=== PATIENT | male | born 1960 | race Caucasian/White ===

== ENCOUNTER 2018-12-04 05:25 | Day surgery (SDC) | payer OTHER ==
[2018-12-03 09:32] LABS: HEMATOCRIT 47.3 % (42.0-54.0); HEMOGLOBIN 16.5 g/dL (13.5-17.5); MCHC 34.9 g/dL (31.0-37.0); MCV 97.3 fL (80.0-100.0); MEAN PLATELET VOLUME 10.2 fL (7.4-10.4); RBC 4.86 10x6/uL (4.20-6.10); RDW 13.5 % (11.5-14.5); WBC 7.5 10x3/uL (4.8-10.8)
[~2018-12-04] VITALS: Ht 188 cm; Wt 93.2 kg
[2018-12-04] VITALS (19 sets, daily range): BP systolic 106–136; BP diastolic 60–83; Ht 188 cm; Wt 93.2 kg
[~2018-12-04 05:25] MED LIST: BAYER CHEWABLE81 MG PO; LIPITOR20 MG PO; LISINOPRIL20 MG PO; METOPROLOL TART50 MG PO; RANITIDINE HCL150 M1 PO; VITAMIN B-12100 MCG PO
--- NOTE | 2018-12-04 10:50 | NUR ---
REC'D TO ROOM CV 4 VIA BED. AWAKE AND ALERT. NO NEURO DEFICITS. VS OBTAINED. O2 VIA NC @ 2 LPM. IV LRS AT KVO. SCDS TO SEJAL LOWER LEGS. SEE FLOWSHEET FOR FULL ASSESSMENT.
--- NOTE | 2018-12-04 14:54 | NUR ---
1430-AMBULATED TO RESTROOM WITHOUT DIFFICULTY-COLLAR APPLIED 1445-DR PACE AT BEDSIDE 1455-SANDWICH TRAY GIVEN
--- NOTE | 2018-12-04 15:11 | NUR ---
RECEVIED REPORT ON PATIENT AND ASSUMED CARE. PATIENT ALERT AND ORIENTED X 4, SITTING UP IN BED EATING SANDWICH. AT BEDSIDE. NO NEEDS AT THIS TIME. HEAD TO TOE ASSESSMENT COMPLETED. VSS.
--- NOTE | 2018-12-04 16:29 | NUR ---
PATIENT GIVEN DINNER TRAY. VSS. NO NEEDS AT THIS TIME.
--- NOTE | 2018-12-04 19:00 | NUR ---
PT ASSESSMENT COMPLETED AT THIS TIME, NO CHANGES NOTED FROM NURSE REPORT, VSS, WILL CONT TO MONITOR FOR CHANGES
--- NOTE | 2018-12-04 19:48 | NUR ---
PT UP TO BATHROOM WITH ASSISTANCE, NO PROBLEMS NOTED, PT USING SOFT CALLOR WHILE GETTING UP AND MOVING.
--- NOTE | 2018-12-04 21:00 | NUR ---
PT RESTING IN BED ON HIS PHONE AND WATCHING TV, NO DISTRESS NOTED, VSS
--- NOTE | 2018-12-04 23:00 | NUR ---
PT REASSESSMENT COMPLETED AT THIS TIME, NO CHANGES NOTED, VSS, WILL CONT TO MONITOR FOR CHANGES
[2018-12-05] VITALS (10 sets, daily range): BP systolic 111–141; BP diastolic 54–713
--- NOTE | 2018-12-05 01:18 | NUR ---
PT RESTING IN BED, DENIES COMPLAINTS AT THIS TIME, VSS, WILL CONT TO MONITOR
--- NOTE | 2018-12-05 03:00 | NUR ---
PT REASSESSMENT COMPLETED AT THIS TIME, NO CHANGES SEEN, VSS
--- NOTE | 2018-12-05 05:00 | NUR ---
PT I AND O COLLECTED AT THIS TIME, VSS NO CHANGES NOTED
--- NOTE | 2018-12-05 10:56 | NUR ---
PT EXPRESSED STRONG CONCERN REGARDING RESTART OF LOPRESSER-HR 89/NIBP-139/78
--- NOTE | 2018-12-05 12:12 | NUR ---
DR MAYORGA AT BEDSIDE-SPOKE WITH PT REGARDING POST OP DIRECTIONS-L IV D/C'D-DIRECTED TO WEAR COLLAR WHEN RIDING IN CAR-MAKE OFFICE APPT 7-10 DAYS REVIEWED DISCHARGE INSTRUCTION PT PATENTLY REFUSED WHEELCHAIR AND STATED WILL WAIT ON OUTSIDE-STOOD WITH PT UNTIL RETURN CALL RECIEVED FROM -AND SHORT RETURN TIME GIVEN
--- NOTE | 2018-12-09 13:29 | OP ---
PATIENT NAME: SHEFALI ESCAMILLA MEDICAL RECORD: [id number] :62 LOCATION:D.OPS ADMISSION DATE: SURGEON: ADOLFO POWERS MD DATE OF OPERATION: 12/04/2018 PREOPERATIVE DIAGNOSES: Disc herniation and osteophyte formation at C5-C6 and C6-C7 with C6 and C7 radiculopathies on the left. POSTOPERATIVE DIAGNOSES: Disc herniation and osteophyte formation at C5-C6 and C6-C7 with C6 and C7 radiculopathies on the left. SURGEON: Adolfo Powers MD PROCEDURE: Anterior cervical discectomy and fusion at C5-C6 and C6-C7 with PEEK interbody cages and Katerine allograft stem cells, separate anterior cervical plate and screws with [employer] [facility] midline plate, removal of osteophytes. DESCRIPTION AND TECHNIQUE: After induction of general endotracheal anesthesia, the patient was positioned supine on the operating table. Neck was prepped and draped in usual sterile fashion. Fluoroscopic x-ray and freer localized the C5-C6 interspace. After infiltration of 1:100,000 epinephrine with 1% lidocaine, a transverse skin incision was carried out from the midline to the sternocleidomastoid muscle. The platysma was divided with Bovie cautery and then using blunt and sharp dissection with Metzenbaum scissors, I proceeded in avascular plane medial to the carotid sheath. The C5-C6 interspace was identified as well as C6-C7 interspace. The longus colli muscles were elevated from bodies of C5, C6, and C7. Osteophytes were removed anteriorly with Adson rongeurs. Niles distracting pins were placed by the C5, C6, and C7. The disc space was incised with a #11 blade at C5-C6 and C6-C7, disc material was removed with pituitary rongeurs and curettes. Osteophytes were drilled away posteriorly with Midas-Wilfrid drill under microscopic illumination. A 2-mm Cloward punch was used to remove the posterior longitudinal ligament. Following this, the dura was decompressed well at C5-C6 and C6-C7 interspaces. Peek interbody cages were placed in the disc space under distraction at C5-C6 and C6-C7. Prior to this, it was filled with Katerine bone allograft. Next, a separate anterior cervical plate and screws from [facility] was used to span the C5-C6 and C6-C7 interspaces. Self-drilling screws were placed through the holes in the plate. Locking cams were tightened down over the screw heads. Meticulous hemostasis was maintained throughout the wound. The wound was irrigated with copious amounts of Ancef irrigant solution. The platysma and subdermal layer closed with interrupted 3-0 Vicryl suture. The skin was reapproximated with Steri-Strips and benzoin. A sterile dressing was applied to the wound. The patient was awakened in good condition and taken to recovery. All counts were reported as correct. ESTIMATED BLOOD LOSS: Minimal. TRANSINT:[id number] Voice Confirmation ID: [id number] DOCUMENT ID: [id number] OPERATIVE REPORT [id number] SHEFALI ESCAMILLA JOHN MD at 1329 CC: [id number] DICTATION DATE: 12/09/18 0837 BLANKET INSPECTOR: 12/09/18 0925 [facility] 12/05/18 [id number] [place] [address]
== END 2018-12-05 12:15 | disposition home or self-care (01) ==
LOC: D.CVICU 05:25 → D.OPS 05:25 → D.PAN 07:30 → D.CVICU 10:41 → D.OPS 12-05 12:15
PROVIDERS: Anesthesiology; ATTEND Neurological Surgery
DX: M50.123 Cervical disc disorder at C6-C7 level with radiculopathy (principal)

== ENCOUNTER 2019-09-07 13:06 | Inpatient (IN) | payer BC, OTHER ==
[~2019-09-07] VITALS: Ht 188 cm; Wt 88.2 kg
[2019-09-07] MEDS ORDERED: FAMOTIDINE10 MG PO (13:54)
[2019-09-07] MEDS ORDERED: VITAMIN B COMPLEX (13:55)
[2019-09-07] MEDS ORDERED: FENOGLIDE40 MG PO (13:56)
[2019-09-07 13:57] VITALS: BP 119/81; Ht 188 cm; Wt 88.2 kg
--- NOTE | 2019-09-07 15:00 | NUR ---
STAT EKG PERFORMED AND PATIENT TAKEN FOR MRI.
--- NOTE | 2019-09-07 16:30 | NUR ---
PATIENT RETURNED FROM MRI. VITALS STABLE. WILL CONTINUE TO MONITOR.
[2019-09-07 16:32] VITALS: BP 119/72
[2019-09-07 16:47] VITALS: BP 133/77
[2019-09-07 17:15] VITALS: BP 128/74
[2019-09-07 17:37] VITALS: BP 127/76
--- NOTE | 2019-09-07 17:42 | NUR ---
AMEE CEJA PAGED FOR DIET ORDER FOR PATIENT FOR DINNER.
[2019-09-07 18:36] LABS: BILIRUBIN NEGATIVE (NEGATIVE); GLUCOSE NEGATIVE (NEGATIVE); KETONE NEGATIVE (NEGATIVE); NITRITE NEGATIVE (NEGATIVE); UROBILINOGEN NORMAL (NORMAL)
[2019-09-07 18:47] LABS: CALC OSMOLALITY 278 mosm/kg (275-300); CALCIUM 9.6 mg/dL (8.5-10.1); CARBON DIOXIDE 33.5 mmol/L (21.0-32.0); CHLORIDE - SERUM 100 mmol/L (98-107); GLUCOSE 143 mg/dL (74-106); POTASSIUM - SERUM 3.6 mmol/L (3.5-5.1); SODIUM 138 mmol/L (136-145); UREA NITROGEN 15 mg/dL (7-18); eGFR NON AFRICAN AMERICAN 81 mL/min (90-120)
[2019-09-07 18:52] LABS: ALBUMIN 4.3 g/dL (3.4-5.0); ALKALINE PHOSPHATASE 57 U/L (30-120); ALT (SGPT) 30 U/L (10-68); BILIRUBIN - TOTAL 0.35 mg/dL (0.2-1.3); PROTEIN - SERUM 7.7 g/dL (6.4-8.2)
[2019-09-07 19:27] LABS: HEMATOCRIT 46.8 % (42.0-54.0); HEMOGLOBIN 15.7 g/dL (13.5-17.5); LYMPHOCYTES 15.1 % (15-50); MCH 32.2 pg (26.0-34.0); MCHC 33.5 g/dL (31.0-37.0); MCV 96.1 fL (80.0-100.0); MEAN PLATELET VOLUME 10.9 fL (7.4-10.4); NEUTROPHILS 78.3 % (40-80); RBC 4.87 10x6/uL (4.20-6.10); RDW 13.7 % (11.5-14.5); WBC 13.8 10x3/uL (4.8-10.8)
[2019-09-07 19:28] LABS: PLATELET COUNT 258 10x3/uL (130-400)
[2019-09-07 20:00] VITALS: BP 112/71
[2019-09-08] VITALS (9 sets, daily range): BP systolic 80–143; BP diastolic 50–78
[2019-09-08] MEDS ORDERED: LOPRESSOR25 MG PO (04:17)
--- NOTE | 2019-09-08 04:47 | NUR ---
I have reviewed this patient and I concur with the Shift Assessment completed by the Licensed Practical Nurse today this shift.
[2019-09-08 06:08] LABS: ANION GAP 13.4 mmol/L (8-16); CALCIUM 9.5 mg/dL (8.5-10.1); CARBON DIOXIDE 30.9 mmol/L (21.0-32.0); CREATININE - SERUM 1.1 mg/dL (0.6-1.3); MAGNESIUM - SERUM 2.1 mg/dL (1.8-2.4); PHOSPHOROUS 3.4 mg/dL (2.5-4.9); POTASSIUM - SERUM 3.3 mmol/L (3.5-5.1)
[2019-09-08 06:27] LABS: HEMATOCRIT 46.1 % (42.0-54.0); LYMPHOCYTES 12.9 % (15-50); MCH 31.9 pg (26.0-34.0); MCHC 32.5 g/dL (31.0-37.0); NEUTROPHILS 79.9 % (40-80); PLATELET COUNT 278 10x3/uL (130-400); RDW 13.7 % (11.5-14.5)
[2019-09-08 06:28] LABS: WBC 17.7 10x3/uL (4.8-10.8)
[2019-09-08 06:29] LABS: MCV 98.1 fL (80.0-100.0)
--- NOTE | 2019-09-08 07:40 | NUR ---
ALERT AND ORIENTED. LUNGS CLEAR BILATERALLY. HEART SOUNDS S1 AND S2 HEARD IN ALL HDEZ. BOWEL SOUNDS ACTIVE X 4. IV TO RFA PATENT WITHOUT REDNESS. DENIES NEEDS. BED LOW. CALL FOUNTAIN AND PERSONAL ITEMS INR EACH. WILL CONTINUE TO MONITOR.
[2019-09-08 07:42] LABS: APTT 26.6 SECONDS (22.8-39.4); INR 0.9 (0.85-1.17); PROTIME 12.2 SECONDS (11.6-15.0)
--- NOTE | 2019-09-08 11:49 | NUR ---
PREOP MEDS GIVEN PER ORDER.
--- NOTE | 2019-09-08 11:51 | NUR ---
SPOKE WITH DR MAYORGA ABOUT CHANGING PATIENT'S DIRECTOR OF MEDICAL REVIEW LOCKOUT. NEW ORDER PLACED PER MD.
--- NOTE | 2019-09-08 13:56 | NUR ---
PATIENTS GENITALIA CHECKED AFTER POSITIONING PRONE, NO IMPINGEMENTS, TWORLEY.
--- NOTE | 2019-09-08 14:24 | NUR ---
PATIENT RETURNED FROM PROCEDURE. VITALS STABLE. WILL CONTINUE TO MONITOR.
[2019-09-09] VITALS: BP 101/61
[2019-09-09 00:22] VITALS: BP 114/80
--- NOTE | 2019-09-09 00:30 | NUR ---
PT REPORTS DIFFICULTY URINATING FOR THE PAST 3-4DAYS, WITH INCREASING DIFFICULTY. STATES IT TAKES 5-10 MINUTES TO FORCE A VOID, BUT FEELS HE IS EMPTYING WHEN FINALLY ABLE. PT GIVEN URINAL TO MEASURE VOIDS. 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
--- NOTE | 2019-09-09 01:15 | NUR ---
PT VOIDED 500MLs CONCENTRATED APPEARING, YELLOW URINE. REPORTS IT TOOK 4-5MINUTES TO EXPELL. MARCIAL WHEAT NOTIFIED OF THIS AND PTs LACK OF RELIEF WITH CURRENT APPIAN DEVELOPER SETTINGS. INTERVENTIONS ENTERED PER TELEPHONE ORDER. PT VERBALIZED UNDERSTANDING OF NEW ORDERS. REPORTS HE WILL SAVE VOIDS IN URINAL FOR NURSE PRIOR TO FLUSHING. SOME BLOOD NOTED TO LOWER BACK DRESSING. REMOVED, CLEANSED. 3 STABLES NOTED, WELL APPROXIMATED. NEW DRESSING APPLIED. NO FURTHER NEEDS VOICED, CTM.
--- NOTE | 2019-09-09 02:59 | NUR ---
I have reviewed this patient and I concur with the Shift Assessment completed by the Licensed Practical Nurse today this shift.
[2019-09-09 04:00] VITALS: BP 107/69
[2019-09-09 05:16] LABS: CALC OSMOLALITY 282 mosm/kg (275-300); CALCIUM 8.2 mg/dL (8.5-10.1); CHLORIDE - SERUM 107 mmol/L (98-107); CREATININE - SERUM 0.9 mg/dL (0.6-1.3); GLUCOSE 113 mg/dL (74-106); MAGNESIUM - SERUM 1.9 mg/dL (1.8-2.4); PHOSPHOROUS 2.7 mg/dL (2.5-4.9); SODIUM 141 mmol/L (136-145); UREA NITROGEN 15 mg/dL (7-18); eGFR NON AFRICAN AMERICAN > 90 mL/min (90-120)
[2019-09-09 05:38] LABS: HEMATOCRIT 39.9 % (42.0-54.0); HEMOGLOBIN 13.3 g/dL (13.5-17.5); LYMPHOCYTES 14.8 % (15-50); MCH 32.4 pg (26.0-34.0); MCHC 33.3 g/dL (31.0-37.0); MCV 97.3 fL (80.0-100.0); MEAN PLATELET VOLUME 10.8 fL (7.4-10.4); NEUTROPHILS 76.4 % (40-80); PLATELET COUNT 257 10x3/uL (130-400); RDW 13.4 % (11.5-14.5); WBC 15.8 10x3/uL (4.8-10.8)
--- NOTE | 2019-09-09 07:09 | NUR ---
PT IS RESTINGI N BED WITH EYES CLOSED. RESPIRATIONS ARE EVEN AND UNLABORED. PT IS EASILY AROUSED WITH VERBAL STIMULATION. PT IS AAO X 4 UPON AROUSAL. PT DENIES PRESENCE OF PAIN/N/V/DYSPNEA/DIZZINESS AT THIS TIME. DRESSING TO LOWER BACK NOTED AND IS CDI. PT DENIES PRESENCE OF NUMBNESS/TINGLING TO BUE AND BLE. BED IS IN THE LOWEST POSITION. CALL LIGHT AND BEDSIDE TABLE ARE WITHIN REACH. SIDE RAILS X 2. PT DENIES FURTHER NEEDS. WILL CONT TO MONITOR.
[2019-09-09] MEDS ORDERED: HYDROCODON-ACE1 EA10 PO (09:03)
[2019-09-09] MEDS ORDERED: MEDROL DOSE PACK4 MG PO (09:05)
[2019-09-09 09:17] VITALS: BP 136/75
[2019-09-09] MEDS ORDERED: NICODERM CQ1 EAC3 TOPICAL (09:34)
--- NOTE | 2019-09-09 10:37 | NUR ---
PIV TO RIGHT FA REMOVED WITH CATHETER TIP INTACT. DRESSING APPLIED. EXTRA LOWER BACK DRESSINGS GIVEN TO PT PER PT REQUEST. ALL DISCHARGE INSTRUCTIONS COVERED WITH PT AND PT SPOUSE. PT DENIES FURTHER QUESTIONS/CONCERNS/NEEDS AT THIS TIME. ALL DISCHARGE PAPERS SIGNED. SIGNED DISCHARGE PAPERS PLACED IN PT CHART. PT ESCORTED FROM ROOM VIA WHEELCHAIR FOR TRANSPORTATION HOME. PT THANKS THIS NURSE FOR CARE GIVEN DURING THIS SHIFT.
--- NOTE | 2019-09-17 11:01 | OP ---
PATIENT NAME: SHEFALI ESCAMILLA MEDICAL RECORD: [id number] :62 LOCATION:D.MS [id number] ADMISSION DATE:09/07/19 SURGEON: ADOLFO MAYORGA MD DATE OF OPERATION: 09/08/2019 PREOPERATIVE DIAGNOSIS: Lumbar spinal stenosis with disc herniation L3-L4, right. PROCEDURE: Lumbar laminectomy, medial facetectomy and foraminotomy, discectomy, L3-L4 right with METRx. SURGEON: Adolfo Mayorga MD DESCRIPTION AND TECHNIQUE: After induction of general endotracheal anesthesia, the patient was rolled prone on a Fer frame. Lumbar spine was prepped and draped in usual sterile fashion. Fluoroscopic x-ray and spinal needle localized the L3-L4 interspace on the right side. Level was confirmed with fluoroscopic x-ray. After infiltration 1:100,000 epinephrine with 1% lidocaine, a stab incision was created with a #11 blade. A series of dilators were used to advance a METRx retractor at the L3-L4 interspace on the right side. Level was confirmed with fluoroscopic x-ray. A microscope and Midas Wilfrid drill were used to perform a laminectomy, medial facetectomy, and foraminotomy at L3-L4 on the right. Hypertrophied ligamentum flavum was removed with Cloward rongeurs. Following this, there was obvious free fragment disc herniation within the foramen at L3-L4. This was removed in a piecemeal fashion with pituitary rongeurs. Next, an additional material was removed from the posterior one-third of the disc space. Following this, the L3 and L4 nerve roots were decompressed well. Meticulous hemostasis was maintained throughout the wound. The wound was irrigated with copious amounts of Ancef irrigant solution. The retractor was removed. The fascia was closed with 2-0 Vicryl suture, the subdermal layer was closed with 3-0 Vicryl suture. The skin was closed with piper. A sterile dressing was applied to the wound. The patient was awakened in good condition, taken to recovery. All counts were reported as correct. Estimated blood loss was minimal. TRANSINT:[id number] Voice Confirmation ID: [id number] DOCUMENT ID: [id number] ADOLFO MAYORGA MD at 1105 CC: [id number] DICTATION DATE: 09/16/19 1516 FINANCIAL ACCOUNTANT: 09/16/19 1540 DIS IN 09/09/19 [facility] [address] [place] [address]
== END 2019-09-09 11:01 | disposition home or self-care (01) | DRG 520 ==
LOC: D.MS 13:06
PROVIDERS: Family Medicine; Neurological Surgery; ADMIT Family Medicine; ATTEND Family Medicine
PROC: 01NB0ZZ Release Lumbar Nerve, Open Approach (ICD-10-PCS; 2019-09-08)
PROC: 0ST20ZZ Resection of Lumbar Vertebral Disc, Open Approach (ICD-10-PCS; principal; 2019-09-08 12:00)
DX: M51.16 Intervertebral disc disorders with radiculopathy, lumbar region (principal); I10 Essential (primary) hypertension; E78.5 Hyperlipidemia, unspecified; M48.061 Spinal stenosis, lumbar region without neurogenic claudication

== ENCOUNTER 2020-04-18 08:00 | Inpatient (IN) | payer OTHER ==
[2020-04-17 10:49] LABS: ANION GAP 12.4 mmol/L (8-16); CALCIUM 9.5 mg/dL (8.5-10.1); CARBON DIOXIDE 28.4 mmol/L (21.0-32.0); CREATININE - SERUM 1.1 mg/dL (0.6-1.3); POTASSIUM - SERUM 3.8 mmol/L (3.5-5.1)
[2020-04-17 10:50] LABS: BASOPHILS 0.4 % (0-2); EOSINOPHILS 3.5 % (0-7); HEMATOCRIT 46.7 % (42.0-54.0); HEMOGLOBIN 15.9 g/dL (13.5-17.5); IMMATURE GRANULOCYTES 0.2 % (0-5); LYMPHOCYTE ABS# 2.41 10x3/uL (1.32-3.57); LYMPHOCYTES 26.6 % (15-50); MCH 31.5 pg (26.0-34.0); MCV 92.5 fL (80.0-100.0); MEAN PLATELET VOLUME 10.4 fL (7.4-10.4); MONOCYTES 9.5 % (2-11); NEUTROPHIL ABS# 5.42 10x3/uL (1.78-5.38); NEUTROPHILS 59.8 % (40-80); PLATELET COUNT 263 10x3/uL (130-400); RBC 5.05 10x6/uL (4.20-6.10); RDW 13.5 % (11.5-14.5); WBC 9.1 10x3/uL (4.8-10.8)
[2020-04-17 10:54] LABS: APTT 29.7 SECONDS (22.8-39.4)
[2020-04-17 11:19] LABS: SARS-CoV-2 ANTIGEN NEGATIVE- SARS-COV-2 (NEGATIVE)
[2020-04-17 11:20] LABS: BILIRUBIN NEGATIVE (NEGATIVE); KETONE NEGATIVE (NEGATIVE); NITRITE NEGATIVE (NEGATIVE); UROBILINOGEN NORMAL mg/dL (< 2)
[2020-04-17 11:24] LABS: BACTERIA FEW HPF (NONE SEEN); SQUAMOUS EPITHELIAL OCC HPF (0-4); WHITE CELLS - URINE OCC HPF (0-1)
[2020-04-17 11:38] LABS: INR 0.95 (0.85-1.17); PROTIME 11.7 SECONDS (11.6-15.0)
[~2020-04-18] VITALS: Ht 188 cm; Wt 90.9 kg
[2020-04-18] VITALS (11 sets, daily range): BP systolic 106–125; BP diastolic 65–85; Ht 188 cm; Wt 90.9 kg
[~2020-04-18 08:00] MED LIST changes: +FAMOTIDINE10 MG PO; +FENOGLIDE40 MG PO; +HYDROCODON-ACE1 EA10 PO; +LOPRESSOR25 MG PO; +MEDROL DOSE PACK4 MG PO; +NICODERM CQ1 EAC3 TOPICAL; +SPIRIVA RESPIMAT4 GM INH; +VITAMIN B COMPLEX
--- NOTE | 2020-04-18 12:02 | NUR ---
CAUTERY PAD PLACED ON LEFT THIGH. PLASMA BLADE USED ON SETTING 6/8. AQUAMANTYS USED ON SETTING 170. CAUTERY PAD LOT#[id number] EXP. 03/10/2021
--- NOTE | 2020-04-18 17:57 | NUR ---
RIGHT GROIN DRESSING CLEAN DRY AND INTACT. WITH ICE BAG IN PLACE. BILATE RAMIREZ HOSE AND SCD ON. FALL ALARM ACTIVATED ON BED. NO PAIN AT PRESENT. CALL LIGHT IN REACH
--- NOTE | 2020-04-18 18:57 | MORECARE ---
"CASE MANAGEMENT DISCHARGE SUMMARY PATIENT: SHEFALI PÉREZ UNIT: [id number] ADM DATE: 04/18/20 AGE: 59 : 62 SEX: M ROOM/BED: D.1203 AUTHOR: ANAHI RAMIREZ PHYSICIAN: REFERRING PHYSICIAN: NEGIN VIRAMONTES DO DATE OF SERVICE: 04/18/20 Discharge Plan Patient Name: SHEFALI PÉREZ Facility: [facility]:[place] : 1960 Planned Disposition: Outpatient PT\\OT Anticipated Discharge Date: Discharge Date: Expected LOS: Initial Reviewer: [email or web address] Initial Review Date: 04/18/2020 Generated: 04/18/20 7:57 pm Comments DCP- Discharge Planning Updated by [email or web address]: Bar Conley on 04/18/20 5:[address] CM met with patient to complete DC plan and needs. Patient lives at home with his spouse, Hailee Pérez ([phone]). At discharge patient plans to return home and feels this is a safe discharge. CM discussed availability of home health, rehab services, and medical equipment. Patient declined HHS, SNF, IPR, and DME but would like Outpatient Therapy Services with [facility] Out[facility] Therapy. NAINA signed and placed in chart. After Hours fax to [facility] unable to obtain SOC. Patient stated that he has a walker, elevated toilet seat, and shower chair. Patient voiced no other needs at this time and is satisfied with DC plan. Transportation provider at discharge will be with his , Hailee. DC IMM delivered, explained, signed by the patient, and placed in chart. Signed form also left with the patient. CM will continue to follow and will assist as needed with dc plans/needs. DCPIA - Discharge Planning Initial Assessment Updated by [id number]: Bar Conley on 04/18/20 6:56 pm * Is the patient Alert and Oriented? Yes * How many steps to enter\\exit or inside your home? 3/0 * PCP Dr. CORNELL | Dr. Scott ([place]) * Pharmacy [facility] * Preadmission Environment Home with Family * ADLs Independent * Equipment Elevated [place] Seat Shower Chair Walker * Other Equipment n/a * List name and contact numbers for known caregivers / representatives who currently or will assist patient after discharge: HAILEE PÉREZ (spouse) [phone] * Verbal permission to speak to the caregivers and representatives has been obtained from the patient. Yes * Community resources currently utilized [facility] * Additional services required to return to the preadmission environment? Yes * Can the patient safely return to the preadmission environment? Yes * Has this patient been hospitalized within the prior 30 days at any hospital? No Patient Name: SHEFALI PÉREZ Page [phone] at 1857 All edits/amendments must be made on the electronic document DICTATION DATE: 04/18/201856 BUS INSPECTOR: MARYLIN 04/18/201856 RPT#: [id number] DC DATE: STATUS: ADM IN [facility] [address] [place] [address] END OF REPORT"
--- NOTE | 2020-04-18 19:05 | MORECARE ---
"CASE MANAGEMENT DISCHARGE SUMMARY PATIENT: SHEFALI PÉREZ UNIT: [id number] ADM DATE: 04/18/20 AGE: 59 : 62 SEX: M ROOM/BED: D.1203 AUTHOR: ANAHI RAMIREZ PHYSICIAN: REFERRING PHYSICIAN: NEGIN VIRAMONTES DO DATE OF SERVICE: 04/18/20 Discharge Plan Patient Name: SHEFALI PÉREZ Facility: [facility]:[place] : 1960 Planned Disposition: Outpatient PT\\OT Anticipated Discharge Date: Discharge Date: Expected LOS: Initial Reviewer: [email or web address] Initial Review Date: 04/18/2020 Generated: 04/18/20 8:04 pm Comments DCP- Discharge Planning Updated by [id number]: Bra Conley on 04/18/20 5:[address] CM met with patient to complete DC plan and needs. Patient lives at home with his spouse, Hailee Pérez ([phone]). At discharge patient plans to return home and feels this is a safe discharge. CM discussed availability of home health, rehab services, and medical equipment. Patient declined HHS, SNF, IPR, and DME but would like Outpatient Therapy Services with [facility] Outpatient Therapy. NAINA signed and placed in chart. After Hours fax to [facility] unable to obtain SOC. Patient stated that he has a walker, elevated toilet seat, and shower chair. Patient voiced no other needs at this time and is satisfied with DC plan. Transportation provider at discharge will be with his , Hailee. DC IMM delivered, explained, signed by the patient, and placed in chart. Signed form also left with the patient. CM will continue to follow and will assist as needed with dc plans/needs. DCPIA - Discharge Planning Initial Assessment Updated by [id number]: Bar Conley on 04/18/20 6:56 pm * Is the patient Alert and Oriented? Yes * How many steps to enter\\exit or inside your home? 3/0 * PCP Dr. CORNELL | Dr. Scott ([place]) * Pharmacy [facility] * Preadmission Environment Home with Family * ADLs Independent * Equipment Elevated [place] Seat Shower Chair Walker * Other Equipment n/a * List name and contact numbers for known caregivers / representatives who currently or will assist patient after discharge: HAILEE PÉREZ (spouse) [phone] * Verbal permission to speak to the caregivers and representatives has been obtained from the patient. Yes * Community resources currently utilized [facility] * Additional services required to return to the preadmission environment? Yes * Can the patient safely return to the preadmission environment? Yes * Has this patient been hospitalized within the prior 30 days at any hospital? No External Providers External Provider: [facility] Next Contact Date: Service Request Date: Service Type: Resolution: Reviewer: Comments: Coverage Notice Reviewer: [email or web address] Zoila Conley Notice Issued Date-Time: 04/18/2020 17:05 Notice Type: IM Discharge Notice Notice Delivered To: Patient Relationship to Patient: Self Observer Electrical Prospecting Name: Delivery Method: HAND - Hand Delivered Cierra Days: Prior Verbal Notification: Recipient Understood Notice: Yes Recipient Signature: Yes Med Rec Note Co-signed by Attending: Coverage Notice Comment: DC IMM delivered, explained, signed by the patient, and placed in chart. Reviewer: [email or web address] Zoila Conley Notice Issued Date-Time: 04/18/2020 17:05 Notice Type: Patient Choice Letter Notice Delivered To: Patient Relationship to Patient: Self Observer Electrical Prospecting Name: Delivery Method: HAND - Hand Delivered Cierra Days: Prior Verbal Notification: Recipient Understood Notice: Yes Recipient Signature: Yes Med Rec Note Co-signed by Attending: Coverage Notice Comment: [facility] Last DP export: 04/18/20 5:57 p Patient Name: SHEFALI PÉREZ Page [phone] at 1905 All edits/amendments must be made on the electronic document DICTATION DATE: 04/18/201903 MEDICAID BILLING SPECIALIST: MARYLIN 04/18/201903 RPT#: [id number] DC DATE: STATUS: ADM IN [facility] [address] [place] [address] END OF REPORT"
--- NOTE | 2020-04-18 21:00 | NUR ---
ALERT RESTING IN BED DENIES NEEDS AT THIS TIME, SEE SHIFT ASSESSMENT, CALL LIGHT IN REACH
[2020-04-19] VITALS: BP 101/63
[2020-04-19 04:00] VITALS: BP 112/68
[2020-04-19] MEDS ORDERED: PERCOCET 10-321 EAC1 PO (07:16)
[2020-04-19] MEDS ORDERED: ELIQUIS2.5 MG PO (07:16)
--- NOTE | 2020-04-19 07:21 | NUR ---
RESTING IN BED WITH EYES OPEN, ALERT AND ORIENTED. IV LOCATED TO LEFT HAND CURRENTLY RUNNING NS @ 50ML. NO CURRENT S/S OF DISTRESS AT THIS TIME, DENIES CURRENT NEEDS, WILL CONT TO MONITOR.
--- NOTE | 2020-04-19 07:32 | OP ---
PATIENT NAME: SHEFALI PÉREZ MEDICAL RECORD: [id number] :62 LOCATION:D.M3 D.1203 ADMISSION DATE:04/18/20 SURGEON: JAS VIRAMONTES DO DATE OF OPERATION: 04/18/2020 PROCEDURE PERFORMED: Right total hip arthroplasty. PREOPERATIVE DIAGNOSIS: Right hip osteoarthritis. POSTOPERATIVE DIAGNOSIS: Right hip osteoarthritis. INDICATIONS: Mr. Pérez is a 59-year-old male who has had right hip pain for quite some time. 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 Due to the fact that he had both, total hip replacement will be the best option for him. He was okay with that and is aware of the risks including fracture, infection, bleeding, leg length discrepancy, damage to nerves, vessels in the area, continued pain, loss of motion of the hip, need for further surgery, need for blood products and blood clots and even . He signed the consent. SURGEON: Jas Viramontes DO DESCRIPTION OF SURGERY OF PROCEDURE: The patient was taken to the operative suite, laid in supine position, given general anesthetic and intubated. He was given 2 grams of Ancef and 80 mg gentamicin and a gram of TXA. He was then moved over to the [place] table and positioned. The right hip was prepped and draped in sterile fashion. Timeout was performed. Everyone was in agreement, the correct side, site, patient, and procedure. I then began by making an incision over the tensor fascia nilsa muscle belly. Made careful dissection down to muscle belly and took the fascia anteriorly, muscle belly posteriorly, I opened up the rectus interval of the rectus medially and the tensor fascia nilsa laterally. I encountered the ascending branch of lateral femoral circumflex and tied it off and coagulated with Aquamantys. I then put two Hohmanns around the neck of the femur extracapsularly open up the capsule and tagged it, put a Hohmanns around the neck intracapsularly got an x-ray to ensure that was cutting in the right place and then cut and removed the head, removed the labrum and the pulvinar after put in a Charnley retractor. I then reamed under fluoroscopy up to a 54; 54 cup was then impacted into place fit very well. I ensured that it was down well with a Nito and was very secure. I then impacted in a liner. I then exposed the femur, used the [employer] cutter and canal finder get in the canal. I then broached up to a 13. The 13 fit very well solidly fixed and then put a standard neck length on it, reduced it. It was a little bit short compared to the left side with -3; -3 was then put in and was reduced and trialled and x-rays were taken and had appeared to be equal length to the left side. I then removed the trials and put in the actual implant 13 stem and then high offset stem with a +3 neck dual mobility head, reduced it and x-rays were taken and leg lengths appeared to be equal between the left and right off the ischial tuberosities of the lesser trochanter. I then used 10% povidone iodine 500 mL of normal saline solution and placed in the hip. Let it sit for approximately 2-3 minutes, irrigated out with a liter of normal saline. Zaki Lee, certified surgical miller first then put in Ami and vancomycin and tobramycin powder and closed the tensor fascia nilsa with [id number] fashion in a running locking stitch with #1 Vicryl. He then closed the skin with 2-0 Vicryl in a vertical fashion, 4-0 Monocryl ran on the skin and placed Prineo glue on the skin and placed a Telfa and Tegaderm on the skin. The patient was OPERATIVE REPORT [id number] SHEFALI PÉREZ then awakened and taken to recovery in stable condition. Blood loss was approximately 200 mL. COMPLICATIONS: None. TRANSINT:[id number] Voice Confirmation ID: [id number] DOCUMENT ID: [id number] JAS VIRAMONTES DO at 0732 CC: [id number] DICTATION DATE: 04/18/20 1250 MEDICAL RECORDS CODER: 04/18/20 1908 ADM IN [facility] [address] [id number]
--- NOTE | 2020-04-19 07:39 | NUR ---
DRESSING CHANGED TO RIGHT HIP PER DRS ORDERS.
[2020-04-19 08:51] LABS: BASOPHILS 0.1 % (0-2); EOSINOPHILS 0.3 % (0-7); HEMATOCRIT 38.9 % (42.0-54.0); HEMOGLOBIN 13.1 g/dL (13.5-17.5); IMMATURE GRANULOCYTES 0.2 % (0-5); LYMPHOCYTE ABS# 2.22 10x3/uL (1.32-3.57); LYMPHOCYTES 14.5 % (15-50); MCH 31.2 pg (26.0-34.0); MCHC 33.7 g/dL (31.0-37.0); MCV 92.6 fL (80.0-100.0); MEAN PLATELET VOLUME 10.5 fL (7.4-10.4); MONOCYTES 7.5 % (2-11); NEUTROPHIL ABS# 11.79 10x3/uL (1.78-5.38); NEUTROPHILS 77.4 % (40-80); PLATELET COUNT 250 10x3/uL (130-400); RDW 13.4 % (11.5-14.5)
[2020-04-19 08:58] LABS: WBC 15.3 10x3/uL (4.8-10.8)
[2020-04-19 09:04] LABS: ANION GAP 10.6 mmol/L (8-16); CALCIUM 8.9 mg/dL (8.5-10.1); CARBON DIOXIDE 28.1 mmol/L (21.0-32.0); CREATININE - SERUM 1.1 mg/dL (0.6-1.3); POTASSIUM - SERUM 3.7 mmol/L (3.5-5.1)
[2020-04-19 09:21] VITALS: BP 108/66
--- NOTE | 2020-04-19 10:52 | NUR ---
IV OUT, DC PAPERS SIGNED NO CONCERNS, DCD VIA WHEELCHAIR.
--- NOTE | 2020-04-19 11:04 | MORECARE ---
"CASE MANAGEMENT DISCHARGE SUMMARY PATIENT: SHEFALI PÉREZ UNIT: [id number] ADM DATE: 04/18/20 AGE: 59 : 62 SEX: M ROOM/BED: D.1203 AUTHOR: ASHLEY,DOC PHYSICIAN: REFERRING PHYSICIAN: NEGIN VIRAMONTES DO DATE OF SERVICE: 04/19/20 Discharge Plan Patient Name: SHEFALI PÉREZ Facility: [facility]:[place] : 1960 Planned Disposition: Outpatient PT\\OT Anticipated Discharge Date: Discharge Date: 04/19/2020 Expected LOS: Initial Reviewer: [email or web address] Initial Review Date: 04/18/2020 Generated: 04/19/20 12:04 pm Comments DCP- Discharge Planning Updated by [email or web address]: [place] on 04/19/20 10:[address] CM called and faxed order to [facility] outpatient therapy set 04/20/20 @ 11:00. CM will continue to follow and assist as needed with discharge planning / needs DCP- Discharge Planning Updated by [email or web address]: Bar Conley on 04/18/20 5:[address] CM met with patient to complete DC plan and needs. Patient lives at home with his spouse, Hailee Pérez ([phone]). At discharge patient plans to return home and feels this is a safe discharge. CM discussed availability of home health, rehab services, and medical equipment. Patient declined HHS, SNF, IPR, and DME but would like Outpatient Therapy Services with [facility]. NAINA signed and placed in chart. After Hours fax to [facility] unable to obtain SOC. Patient stated that he has a walker, elevated toilet seat, and shower chair. Patient voiced no other needs at this time and is satisfied with DC plan. Transportation provider at discharge will be with his , Hailee. DC IMM delivered, explained, signed by the patient, and placed in chart. Signed form also left with the patient. CM will continue to follow and will assist as needed with dc plans/needs. DCPIA - Discharge Planning Initial Assessment Updated by [email or web address]: Bar Conley on 04/18/20 6:56 pm * Is the patient Alert and Oriented? Yes * How many steps to enter\\exit or inside your home? 3/0 * PCP Dr. CORNELL | Dr. Scott ([place]) * Pharmacy [facility] * Preadmission Environment Home with Family * ADLs Independent * Equipment Elevated [place] Seat Shower Chair Walker * Other Equipment n/a * List name and contact numbers for known caregivers / representatives who currently or will assist patient after discharge: HAILEE PÉREZ (spouse) [phone] * Verbal permission to speak to the caregivers and representatives has been obtained from the patient. Yes * Community resources currently utilized [place] [facility] * Additional services required to return to the preadmission environment? Yes * Can the patient safely return to the preadmission environment? Yes * Has this patient been hospitalized within the prior 30 days at any hospital? 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
== END 2020-04-19 10:53 | disposition home or self-care (01) | DRG 470 ==
LOC: D.OPS 08:00 → D.M3 12:49 → D.OPS 14:15 → D.M3 04-19 10:53
PROVIDERS: Family Medicine; ADMIT Orthopaedic Surgery; ATTEND Orthopaedic Surgery
PROC: 0SR90JZ Replacement of Right Hip Joint with Synthetic Substitute, Open Approach (ICD-10-PCS; principal; 2020-04-18 10:00)
DX: M16.11 Unilateral primary osteoarthritis, right hip (principal); J44.9 Chronic obstructive pulmonary disease, unspecified; I10 Essential (primary) hypertension; E78.5 Hyperlipidemia, unspecified; K21.9 Gastro-esophageal reflux disease without esophagitis; G89.29 Other chronic pain; M54.9 Dorsalgia, unspecified